=== PATIENT | female | born 1960 | race Caucasian/White ===

== ENCOUNTER → 2020-07-25 06:28 | Outpatient (CLI) | payer MEDICAID, SELFPAY ==
[2020-07-14 13:17] VITALS: BMI 31.6
--- NOTE | 2020-07-25 06:30 | MRI_ITS ---
STUDY: MRI LUMBAR SPINE WITHOUT CONTRAST REASON FOR EXAM: Female, 59 years old. low back pain into L leg x many years TECHNIQUE: Standardized fat and water weighted pulse sequences were obtained in the sagittal and axial planes. COMPARISON: X-ray 07/14/2020 FINDINGS: T12-L1: Normal endplates. Normal disc height, hydration and morphology. Normal bilateral facet joints. Normal central canal and bilateral lateral recesses. Normal bilateral intervertebral neural foramina. Normal lumbar lordosis. Mild dextroscoliosis centered at L3. Normal conus medullaris that terminates at the T12/L1. L1-2: Mild bilateral facet hypertrophy and moderate ligament flavum hypertrophy. 2 mm retrolisthesis of L1 on L2 with a mild bilobed disc protrusion produces mild spinal stenosis and mild bilateral neural foraminal stenosis. Associated Modic type II endplate changes. L2-3: Mild bilateral facet hypertrophy and moderate ligament flavum hypertrophy. Disc desiccation and loss of disc height but no disc protrusion, spinal stenosis, or neural foraminal stenosis. L3-4: Mild bilateral facet hypertrophy and moderate ligament flavum hypertrophy. 2 mm retrolisthesis of L3 on L4 with a mild broad disc protrusion produces mild spinal stenosis and mild bilateral neural foraminal stenosis. L4-5: Moderate bilateral facet hypertrophy and ligament flavum hypertrophy. Mild broad disc protrusion produces mild spinal stenosis with mild bilateral lateral recess stenosis with abutment of the L5 nerve roots bilaterally and mild bilateral neural foraminal stenosis. L5-S1: Mild bilateral facet hypertrophy and ligament flavum hypertrophy. 2 mm retrolisthesis of L5 on S1 with a mild broad disc protrusion produces mild spinal stenosis and moderate bilateral neural foraminal stenosis with abutment of the exiting L5 nerve roots bilaterally. Normal visualized sacral ala. Normal visualized paraspinous soft tissue structures. MRI/Spine Lumbar (Routine) IMPRESSION: Multilevel degenerative changes, as described above. Electronically Signed: Andre Ocampo MD at 10:40 EST Tel , Service support ,
== END ==
PROVIDERS: PCP Nurse Practitioner Family; Referring Provider Orthopaedic Surgery; Visit Provider Orthopaedic Surgery
DX: M54.5 Low back pain (principal); M79.605 Pain in left leg; M51.36 Other intervertebral disc degeneration, lumbar region
CPT/HCPCS: 72148

== ENCOUNTER 2022-08-20 17:33 | Emergency (ER) | payer MEDICARE, MEDICAID, SELFPAY ==
[2022-08-20 17:35] VITALS: BP 160/96; PULSE 79; RESP 14; TEMP 37.2; O2SAT 96; BMI 49.0
--- NOTE | 2022-08-20 21:30 | CT_ITS ---
INDICATION: left flank pain EXAMINATION: CT ABDOMEN AND PELVIS WITHOUT CONTRAST - CT Abdomen And Pelvis W/O Contrast Injection TECHNIQUE: Helically acquired images were obtained of the abdomen and pelvis without oral or IV contrast. A radiation dose optimization technique was used for this scan. IV Contrast dosage and agent: None. Oral contrast: None. COMPARISON: None. FINDINGS: LOWER CHEST: Left basilar calcified granuloma. No cardiomegaly or pericardial effusion. LIVER: Homogeneous hepatomegaly and hepatic steatosis. No focal mass. GALLBLADDER AND BILIARY TREE: Cholecystectomy.. No intra- or extrahepatic biliary ductal dilation. PANCREAS: No focal cystic or solid mass. SPLEEN: Calcified sequela of prior granulomatous disease.. ADRENAL GLANDS: No nodules. KIDNEYS AND URETERS: Bilateral nephrolithiasis. Normal renal size and position. No hydronephrosis. No perinephric inflammation. PERITONEUM: No ascites or free air. No other fluid collection. BOWEL: No evidence of acute appendicitis. No stomach or bowel distension. No focal inflammatory change. LYMPH NODES: No enlarged mesenteric or retroperitoneal lymph nodes. VESSELS: Aorta is non-dilated. URINARY BLADDER: Unremarkable. REPRODUCTIVE ORGANS: Absent uterus. Unremarkable symmetric ovaries. ABDOMINAL WALL: No discrete abdominal or pelvic wall hernia. BONES: No lytic or blastic abnormality. CT/Abdomen/Pelvis without Cont IMPRESSION: Bilateral nephrolithiasis. No evidence of hydronephrosis or current ureteral stone. Scattered colonic diverticulosis without specific evidence of diverticulitis. Hepatic steatosis and hepatomegaly. Sequela of prior granulomatous disease. Electronically Signed: Alhaji Lopez MD at 22:24 [facility] ,
--- NOTE | 2022-08-20 21:52 | EDS_ITS ---
HPI History of Present Illness Chief Complaint: Flank Pain Informant: patient Onset/Context/Timing Onset: Days Context: Gradual Onset Timing: Waxes and wanes Current Severity: Moderate Maximum Severity: Moderate Narrative Narrative: Patient presents secondary to continued left flank pain. She reports having left flank pain about a week ago. She passed a small stone and had some bladder spasms. She continues to have left flank pain since that time. She has had some nausea today secondary to pain. [facility] Medical History Asthma Chronic back pain Kidney stones Home Medications acetaminophen 300 mg-codeine 30 mg tablet 1 tab PO BID PRN 07/14/20 [History Last Taken Unknown] albuterol sulfate 0.63 mg/3 mL solution for nebulization 0.63 mg inhalation Q6H 07/14/20 [History Last Taken Unknown] cyclobenzaprine 5 mg tablet 5 mg PO TID PRN 07/14/20 [History Last Taken Unknown] furosemide 40 mg tablet (Lasix) 40 mg PO DAILY 07/14/20 [History Last Taken Unknown] potassium citrate 10 mEq (1,080 mg) tablet,extended release 10 meq PO TID 07/14/20 [History Last Taken Unknown] pregabalin 75 mg capsule cap PO 08/06/20 [History Last Taken Unknown] Allergy/AdvReac Type Severity Reaction Status Date / Time azithromycin [From Zithromax] Allergy rash Verified 08/20/22 17:34 clarithromycin [From Biaxin] Allergy rash Verified 08/20/22 17:34 ibuprofen Allergy unknown Verified 08/20/22 17:34 iron [From Venofer] Allergy unknown Verified 08/20/22 17:34 onion Allergy NEEDS Verified 08/20/22 17:34 FOLLOW-UP Penicillins Allergy rash Verified 08/20/22 17:34 sulfamethoxazole Allergy unknown Verified 08/20/22 17:34 [From Bactrim] trimethoprim [From Bactrim] Allergy unknown Verified 08/20/22 17:34 Surgical History h/o carpal tunnel release h/o cholecystectomy H/O total knee replacement H/O: hysterectomy Social History Smoking Status: Never smoker alcohol intake: never ROS ROS ED Constitutional Constitutional ED: Denies chills or fever(s) Eyes Eyes: Denies change in vision or discharge from eye(s) ENT ENT ED: Denies discharge from eye(s), rhinorrhea or sore throat Cardiovascular Cardiovascular: Denies chest pain or palpitations Respiratory/Chest Respiratory/Chest: Denies cough or dyspnea Gastrointestinal Gastrointestinal: Reports abdominal pain and nausea; Denies diarrhea or vomiting Genitourinary Genitourinary ED: Denies difficulty urinating or dysuria Musculoskeletal Musculoskeletal: Denies back pain or extremity pain Integumentary Denies Abrasions or rash Neurologic Neurologic: Denies headache(s) or weakness Psychiatric Psychiatric: Denies anxiety or depression Allergic/Immunologic Allergic/Immunologic ED: Denies lip swelling or urticaria EXAM Physical Exam Const Vital Signs: 08/20/22 17:35 08/20/22 22:16 08/20/22 22:17 Temperature 98.9 F 97.9 F Temperature Source Temporal Temporal Pulse Rate 79 79 Respiratory Rate 14 15 Respiratory Pattern Normal Blood Pressure 160/96 H 124/87 H Blood Pressure Mean 117 99 Pulse Ox 96 97 Oxygen Delivery Method Room Air Room Air Positive well nourished and well developed General Appearance ED: well developed HEENT Reports normocephalic and head/scalp atraumatic Eyes PERRL and EOMs intact bilaterally Neck supple Chest Wall inspection of chest normal and palpation of chest normal Resp normal respiratory effort and clear to auscultation bilaterally Cardio regular rate and regular rhythm GI non-tender Palpation: soft Back/Spine General Back: CVA tenderness left Extremity normal to inspection Neuro oriented x3 and no sensory deficits noted Sensorium / Orientation: alert Motor Exam: strength 5/5 throughout Psych mental status grossly normal Skin no rashes or lesions noted MDM MDM MDM Narrative Medical decision making narrative: CBC and chemistry studies obtained to evaluate for leukocytosis, anemia, electrolyte derangement, renal function. Urinalysis obtained to evaluate for infection and hematuria. CT flank obtained to evaluate for renal stone. Patient treated with morphine and Zofran along with IV fluids. Lab Data Attestation: I reviewed the patient's lab results. Labs: Laboratory Results - last 24 hr 08/20/22 08/20/22 08/20/22 22:00 22:11 22:11 WBC 8.9 RBC 5.28 Hgb 14.8 Hct 44.2 MCV 83.7 MCH 28.0 MCHC 33.5 RDW Std Deviation 40.2 RDW Coeff of Irma 13.2 Plt Count 263 MPV 9.3 Immature Gran % (Auto) 0.100 Neut % (Auto) 51.7 Lymph % (Auto) 36.6 [place] % (Auto) 8.1 Eos % (Auto) 2.8 Baso % (Auto) 0.7 Absolute Neuts (auto) 4.6 Absolute Lymphs (auto) 3.27 Nucleated RBC % 0 Sodium 139 Potassium 3.6 Chloride 102 Carbon Dioxide 28.0 Anion Gap 9 BUN 12 Creatinine 0.61 Estim Creat Clear Calc 75.63 Est GFR (MDRD) Af Amer 129 Est GFR (MDRD) Non-Af 106 BUN/Creatinine Ratio 19.8 Glucose 101 Calcium 9.5 Urine Color Yellow Urine Clarity Clear Urine pH 6.5 Ur Specific Morgan 1.010 Urine Protein Negative Urine Glucose (UA) Normal Urine Ketones Negative Urine Occult Blood Negative Urine Nitrite Negative Urine Bilirubin Negative Urine Urobilinogen Normal Ur Leukocyte Esterase 25 H Urine RBC 0 SEEN Urine WBC 0-5 SEEN Ur Squamous Epith Cells 0 SEEN Urine Bacteria 0 SEEN Urine Mucus 0 SEEN Radiography Diagnostic Testing: Clinical Impression(s) from Imaging Studies Abdomen/Pelvis CT 08/20/22 21:30 IMPRESSION: Bilateral nephrolithiasis. No evidence of hydronephrosis or current ureteral stone. Scattered colonic diverticulosis without specific evidence of diverticulitis. Hepatic steatosis and hepatomegaly. Sequela of prior granulomatous disease. Electronically Signed: Alhaji Lopez MD at 22:24 EST Reading Location ID and State: [facility] / [place] Tel , Service support , Treatment and Re-Evaluation Narrative: CBC and chemistry studies are unremarkable. Urinalysis reveals no acute infe ction. No hematuria. CT scan of the flank reveals bilateral nephrolithiasis. There is no evidence of ureteral stone. On repeat evaluation patient is resting comfortably. Test results are discussed with her and her . She has an appointment to see her urologist later this month. Return instructions are provided. Discharge Plan Triage Chief Complaint: Flank Pain ED Provider: Sandrine Lamas Dx/Rx/DC Orders Clinical Impression: Left flank pain Instructions: ED Flank Pain, Uncertain Cause Prescriptions: No Action acetaminophen-codeine 300-30 mg tablet 1 tab PO BID PRN furosemide [Lasix] 40 mg tablet 40 mg PO DAILY potassium citrate 10 mEq (1,080 mg) tablet extended release 10 meq PO TID cyclobenzaprine 5 mg tablet 5 mg PO TID PRN albuterol sulfate 0.63 mg/3 mL solution for nebulization 0.63 mg INHALATION Q6H pregabalin 75 mg capsule PO Primary Care Provider: Radha Meehan NP Referrals: Radha Meehan NP, [employer] [Primary Care Provider] - Activity Restrictions/Additional Instructions: Follow-up with urology as scheduled. Disposition Disposition: Home, Self Care
[2022-08-20 22:16] VITALS: BP 124/87; PULSE 79; RESP 15; TEMP 36.6; O2SAT 97
[2022-08-20 22:21] LABS: Absolute Lymphocyte Count 3.27 X10^3/uL (0.83-4.51); Absolute Neutrophil Count 4.6 X10^3/uL (2.0-7.7); Basophil# 0.06 X10^3/uL; Basophil% 0.7 % (0-1); Eosinophil# 0.25 X10^3/uL; Eosinophils% 2.8 % (0-5); Hematocrit 44.2 % (37-47); Hemoglobin 14.8 g/dL (12.0-15.0); Lymphocyte # 3.27 X10^3/ul (0.83-4.51); Lymphocyte % 36.6 % (19-41); Mean Corp Hgb Conc 33.5 g/dL (32-36); Mean Corpuscular Volume 83.7 fL (81-99); Mean Platelet Vol. 9.3 fl (6.2-12.0); Monocyte# 0.72 X10^3/uL; Monocyte% 8.1 % (0-10); NRBC Flagged by Analyzer 0 % (0-5); Neutrophil # 4.62 X10^3/uL (2.7-7.7); Neutrophil % 51.7 % (47-70); Platelet Count 263 K/mm3 (150-450); RBC Distribution Width CV 13.2 % (11.6-14.6); RBC Distribution Width SD 40.2 fl (35.1-43.9); Red Blood Count 5.28 M/mm3 (4.2-5.4); White Blood Count 8.9 K/mm3 (4.4-11.0)
[2022-08-20 22:30] LABS: Bacteria 0 SEEN /hpf (None Seen); Mucous, Urine 0 SEEN /hpf (<or=2+); Red Blood Cells-Urine 0 SEEN /hpf (0-5); Squamous Epithelial Cells - UA 0 SEEN /hpf (5-10)
[2022-08-20] MEDS: Morphine 4 MG/ML Syringe IV (22:30)
[2022-08-20] MEDS: Ondansetron 4 MG/2 ML Vial IV (22:30)
[2022-08-20] MEDS: 0.9% Normal Saline 1,000 ML 150 ML IV (22:30)
[2022-08-20 22:34] LABS: Color, Urine Yellow (Yellow); Glucose, Dipstick Normal (Normal); Ketone-Dipstick Negative (Negative); Leukocyte Esterase-Dipstick 25 /ul (Negative); Nitrite-Dipstick Negative (Negative); Occult Blood-Urine Negative /ul (Negative); Protein-Dipstick Negative (Negative); Urine Bilirubin Dipstick Negative (Negative); Urine Clarity Clear (Clear); Urine Urobilinogen Normal (Normal); Urine pH 6.5 (5.0 - 8.0)
[2022-08-20 22:39] LABS: Anion Gap 9 (5-15); BUN 12 mg/dL (7-18); BUN/Creat Ratio 19.8 RATIO (10-20); Calcium,Total 9.5 mg/dL (8.5-10.1); Chloride 102 mmol/L (98-107); Creatinine, Serum 0.61 mg/dL (0.55-1.02); EST Glomerular Filtration Rate 106 mL/min (>60); Est Glom Filt Rate - Afr Amer 129 mL/min (>60); Estimated Creatinine Clearance 75.63 ml/min; Glucose 101 mg/dL (74-106); Potassium 3.6 mmol/L (3.5-5.1); Sodium Level 139 mmol/L (136-145)
[2022-08-20 22:40] LABS: White Blood Cells 0-5 SEEN /hpf (0-5)
[2022-08-20 22:57] VITALS: PULSE 89; RESP 15; O2SAT 99
== END 2022-08-20 22:59 | disposition home or self-care (01) ==
PROVIDERS: Emergency Provider Emergency Medicine; PCP Nurse Practitioner Family; Visit Provider Emergency Medicine
DX: R10.9 Unspecified abdominal pain (principal); J45.909 Unspecified asthma, uncomplicated; Z87.442 Personal history of urinary calculi
CPT/HCPCS: 74176; 80048; 81001; 85025; 96374; 96375; 99283; A4216; J2405

== ENCOUNTER → 2024-09-11 | Outpatient (CLI) | payer MEDICARE, SELFPAY ==
[2024-09-11 19:42] LABS: Amphetamine Urine NEGATIVE (<1000 ng/mL); Barbiturate Urine NEGATIVE (< 200 ng/mL); Benzodiazepine Urine NEGATIVE (< 200 ng/mL); Buprenorphine Urine NEGATIVE (< 200 ng/mL); Cocaine Urine NEGATIVE (< 300 ng/mL); Fentanyl, Urine NEGATIVE; Methadone Urine NEGATIVE (< 300 ng/mL); Opiates Urine PRESUMPTIVE POSITIVE (< 300 ng/mL); Oxycodone, Urine NEGATIVE (< 100 ng/mL); PCP Urine NEGATIVE (< 25 ng/mL); THC Urine NEGATIVE (< 50 ng/mL)
== END | disposition home or self-care (01) ==
PROVIDERS: PCP Nurse Practitioner Family; Referring Provider Anesthesiology; Visit Provider Anesthesiology
DX: F11.20 Opioid dependence, uncomplicated (principal)
CPT/HCPCS: 80307